=== PATIENT | female | born 1950 ===

== ENCOUNTER 2020-12-31 07:18 | Emergency (ER) | payer OTHER ==
[~2020-12-31] VITALS: Ht 160 cm; Wt 73.9 kg
[2020-12-31] MEDS ORDERED: CRESTOR5 MG (07:51)
== END 2020-12-31 08:54 | disposition home or self-care (01) ==
LOC: ER 07:18
DX: R07.0 Pain in throat (principal); J02.8 Acute pharyngitis due to other specified organisms